=== PATIENT | female | born 1945 | race Caucasian/White ===

== ENCOUNTER 2016-07-27 11:28 | Emergency (ER) | payer MEDICARE ==
[~2016-07-27] VITALS: Ht 157.5 cm; Wt 55.0 kg
[2016-07-27 11:32] VITALS: BP 150/86; PULSE 77; RESP 16; TEMP 98.1; O2SAT 98
[2016-07-27] MEDS ORDERED: LEVO50TA4 PO (11:40)
[2016-07-27] MEDS ORDERED: [UNRECOGNIZED DRUG - CODE] (11:40)
[2016-07-27] MEDS ORDERED: ROBA500T PO (11:49)
--- NOTE | 2016-07-27 11:51 | PD ---
HPI Chief Complaint: Musculoskeletal Complaint Time Seen by Provider: 11:30 Travel History International Travel<30 days: No Contact w/Intl Traveler<30days: No Traveled to known affect area: No History of Present Illness HPI 71 -year-old female presents to the emergency room for evaluation of left posterior shoulder pain for the past 2-3 days. Patient states it started while she was doing Pilates and lifting weights at the gym and has not improved. Pain is severe, 8/10, brought her to tears. She could feel the strain in her shoulder while performing exercises but didn't think anything of it at the time. Now pain is exacerbated with any range of motion of the left shoulder. Relieved with lying down and certain pressure points. She has not taken anything for pain because ibuprofen "tears up my stomach." She has applied heat and ice but states the area seems to make it worse. She has also applied topical creams which helped "for 3 minutes." Denies paresthesias or weakness. History of hypothyroidism. PFSH Past Medical History Thyroid Disease: Yes Influenza Vaccination: No ?: Not Menopausal: Yes Past Surgical History Surgical History: No Previous Surgery Social History Alcohol Use: Yes (occas) Tobacco Use: No Substance Use: No Allergies-Medications (Allergen,Severity, Reaction): Coded Allergies: Erythromycin (Verified Allergy, Intermediate, rash, 07/27/16) Lisinopril (Verified Allergy, Intermediate, rash, 07/27/16) Penicillin (Verified Allergy, Intermediate, rash, 07/27/16) Reported Meds & Prescriptions Reported Meds & Active Scripts Active Robaxin (Methocarbamol) 500 Mg Tab 500 Mg PO Q8HR Reported Progesterone Milled (Progesterone) 1 Pow Pow Levothyroxine (Levothyroxine Sodium) 50 Mcg Tab 50 Mcg PO DAILY Review of Systems Except as stated in HPI: all other systems reviewed are Neg Physical Exam Narrative GENERAL: Well-nourished, well-developed female in no acute distress. Afebrile. Ambulatory. SKIN: Warm and dry. No erythema or ecchymosis. HEAD: Normocephalic. EYES: No scleral icterus. No injection or drainage. NECK: Supple, trachea midline. No JVD or lymphadenopathy. EXTREMITY: Left shoulder tender to palpation over the posterior/scapular region. Limited range of motion in left shoulder secondary to pain. No obvious edema. 2+ radial pulse. Full range of motion of the elbow, wrist, and hand. Strength 5/5 and equal in left hand. Data Data Last Documented VS Vital Signs Date Time Temp Pulse Resp B/P Pulse Ox O2 Delivery O2 Flow Rate FiO2 07/27/16 11:32 98.1 77 16 150/86 98 Orders Orphenadrine Inj (Norflex Inj) (07/27/16 12:00) Ketorolac Inj (Toradol Inj) (07/27/16 12:00) MDM Medical Decision Making Medical Screen Exam Complete: Yes Emergency Medical Condition: Yes Medical Record Reviewed: Yes Differential Diagnosis Muscle spasm versus strain versus rotator cuff injury Narrative Course 71-year-old female presents to the emergency room for evaluation of left shoulder strain for the past 2-3 days. Patient states pain developed while lifting weights and has not improved. She has not taken any oral over-the- counter pain medications.physical exam reveals left shoulder tenderness to palpation over the posterior/scapular region. Limited range of motion in left shoulder secondary to pain. Pain is not as severe with passive range of motion. No edema, ecchymosis, or erythema. 2+ radial pulse. No bony tenderness. No indication for x-ray imaging. Patient is requesting MRI. She was informed that the emergency room does not perform MRIs for nonemergent reasons and to follow-up with her primary care physician for an order. She'll be given Toradol and Norflex in the emergency room and discharged with prescription for Robaxin. Patient told to follow up with a primary care physician or orthopedist and return for worsening symptoms. She understands and agrees to plan. Diagnosis Primary Impression: Muscle strain of left scapular region Qualified Code: S46.912A - Muscle strain of left scapular region, initial encounter Referrals: Primary Care Physician Patient Instructions: General Instructions, Muscle Strain (ED) Additional Instructions: Rest and drink plenty of fluids. Take Robaxin as directed, as needed for pain. Take Tylenol as directed, as needed for pain. Apply heat to the affected area for 20 minutes at a time, as needed for pain and swelling. Follow-up with a primary care physician. Return to the emergency room for worsening symptoms. Med/Other Pt SpecificInfo: Prescription(s) given Scripts Methocarbamol (Robaxin)500 Mg Yce312 Mg PO Q8HR #21 TAB Ref 0 Prov:Soontharothai,Rewadee MD 07/27/16 Disposition: 01 DISCHARGE HOME Condition: Stable Herlinda Maldonado Jul 27, 2016 11:51
[2016-07-27] MEDS ORDERED: KETOROLAC TROMETHAMINE 60 MG/2 ML (IM) VIAL IM ONE (12:00)
[2016-07-27] MEDS ORDERED: ORPHENADRINE INJ 60 MG/2 ML AMP IM ONE (12:00)
== END 2016-07-27 12:09 | disposition home or self-care (01) ==
LOC: PHEFT 11:28
DX: S46.912A Strain of unspecified muscle, fascia and tendon at shoulder and upper arm level, left arm, initial encounter (principal); X50.9XXA Other and unspecified overexertion or strenuous movements or postures, initial encounter; Y93.B4 Activity, pilates; Y93.B3 Activity, free weights; Y92.39 Other specified sports and athletic area as the place of occurrence of the external cause
CPT/HCPCS: 96372; 99283; J1885; J2360

== ENCOUNTER 2017-04-26 11:04 | Emergency (ER) | payer MEDICARE ==
[~2017-04-26] VITALS: Ht 157.5 cm; Wt 56.0 kg
[~2017-04-26 11:04] MED LIST: LEVO50TA4 PO; ROBA500T PO; [UNRECOGNIZED DRUG - CODE]
[2017-04-26 12:04] VITALS: BP 161/94; PULSE 74; RESP 16; TEMP 98.6; O2SAT 96
[2017-04-26 12:23] VITALS: BP 161/80; PULSE 74; RESP 20; O2SAT 97
[2017-04-26] MEDS ORDERED: PROG100C PO (12:23)
[2017-04-26] MEDS ORDERED: IPRA17I INH (12:30)
[2017-04-26] MEDS ORDERED: FLUTI110I INH (12:30)
[2017-04-26 12:40] VITALS: O2SAT 96
[2017-04-26] MEDS ORDERED: ASPIRIN 81 MG CHEW TAB PO ONE (12:45)
[2017-04-26 12:55] LABS: AUTOMATED NEUTROPHIL # 5.4 TH/MM3 (1.8-7.7); BASOPHIL # 0.1 TH/MM3 (0-0.2); BASOPHIL % 0.7 % (0.0-2.0); EOSINOPHIL # 0.1 TH/MM3 (0-0.4); EOSINOPHIL % 0.9 % (0.0-4.0); HEMATOCRIT 49.7 % (35.0-46.0); HEMOGLOBIN 16.5 GM/DL (11.6-15.3); LYMPH % 17.2 % (9.0-44.0); LYMPHOCYTE # 1.2 TH/MM3 (1.0-4.8); MEAN CELL VOLUME 90.4 FL (80.0-100.0); MEAN CORPUSCULAR HEMOGLOBIN 30.1 PG (27.0-34.0); MEAN CORPUSCULAR HGB CONC 33.3 % (32.0-36.0); MEAN PLATELET VOLUME 8.4 FL (7.0-11.0); MONO % 5.8 % (0.0-8.0); MONOCYTE # 0.4 TH/MM3 (0-0.9); NEUT % 75.4 % (16.0-70.0); PLATELET COUNT 221 TH/MM3 (150-450); RED CELL DISTRIBUTION WIDTH 13.2 % (11.6-17.2); WHITE BLOOD COUNT 7.3 TH/MM3 (4.0-11.0)
--- NOTE | 2017-04-26 13:00 | PD ---
HPI Chief Complaint: Cardiac Complaint Time Seen by Provider: 12:20 Travel History International Travel<30 days: No Contact w/Intl Traveler<30days: No Traveled to known affect area: No History of Present Illness HPI The patient is a 72-year-old female who presents to the emergency department for palpitations and possible paroxysmal atrial fibrillation. The patient has a history of atrial fibrillation and underwent ablation by her oracle erp architect who is located at [facility] in [place], [place]. The patient states she had a Holter monitor prior to, to [place], they saw some "runs "of paroxysmal atrial fibrillation. The patient was advised to come to the emergency department for evaluation if she had any further palpitations. The patient states she occasionally has episodes of wheezing and difficulty breathing and [place], and has been using her inhaler over the last several days. The patient then had an episode where she could hear the heartbeat while she was lying in bed, thought she could hear atrial fibrillation. She denies any current lightheadedness, dizziness, chest pain, shortness breath, nausea, vomiting, or lower extremity edema. Symptoms are moderate, there are no current alleviating or exacerbating factors. The patient states she is allergic to rate limiting drugs such as calcium channel blockers and beta blockers. The patient is not currently anticoagulated and does not take aspirin or any other oral anticoagulants. PFSH Past Medical History Asthma: Yes Atrial Fibrillation: Yes (in past) Cardiovascular Problems: Yes (hx A-Fib bicupsid valve prob) Diminished Hearing: No Respiratory: Yes (Asthma) Immunizations Current: Yes Thyroid Disease: Yes Tetanus Vaccination: > 5 Years Influenza Vaccination: No ?: Not Menopausal: Yes Past Surgical History Cardiac Surgery: Yes (ablation) Section: Yes Social History Alcohol Use: Yes (occas) Tobacco Use: No Substance Use: No Allergies-Medications (Allergen,Severity, Reaction): Coded Allergies: erythromycin base (Unverified Allergy, Intermediate, rash, 04/26/17) lisinopril (Unverified Allergy, Intermediate, rash, 04/26/17) penicillin G (Unverified Allergy, Intermediate, rash, 04/26/17) Reported Meds & Prescriptions Reported Meds & Active Scripts Active Reported Flovent Hfa 12 GM Inh (Fluticasone Propionate) 110 Mcg/Act Inh 1 Puff INH BID Atrovent HFA 12.9 GM Inh (Ipratropium [place]) 17 Mcg/Actuation Aer 2 Puff INH Q6HR PRN Progesterone Micronized 100 Mg Cap 100 Mg PO DAILY Levothyroxine (Levothyroxine Sodium) 50 Mcg Tab 100 Mcg PO DAILY Review of Systems Except as stated in HPI: all other systems reviewed are Neg General / Constitutional: No: Fever Cardiovascular: Positive: Palpitations, Irregular Rhythm, No: Chest Pain or Discomfort, Diaphoresis Respiratory: No: Shortness of Breath Gastrointestinal: No: Nausea, Vomiting, Abdominal Pain Musculoskeletal: No: Edema Neurologic: No: Dizziness Physical Exam Narrative GENERAL: Awake, alert, pleasant 72-year-old female who appears her stated age and is in no acute respiratory distress. SKIN: Focused skin assessment warm/dry. HEAD: Atraumatic. Normocephalic. EYES: Pupils equal and round. No scleral icterus. No injection or drainage. ENT: No nasal bleeding or discharge. Mucous membranes pink and moist. NECK: Trachea midline. No JVD. CARDIOVASCULAR: Regular rate and rhythm. Holosystolic murmur 2/6 noted. Heart rate in the 70s. RESPIRATORY: No accessory muscle use. Clear to auscultation. Breath sounds equal bilaterally. GASTROINTESTINAL: Abdomen soft, non-tender, nondistended. MUSCULOSKELETAL: No obvious deformities. No clubbing. No cyanosis. No edema. Calves are soft bilaterally. NEUROLOGICAL: Awake and alert. No obvious cranial nerve deficits. Motor grossly within normal limits. Normal speech. PSYCHIATRIC: Appropriate mood and affect; insight and judgment normal. Data Data Last Documented VS Vital Signs Date Time Temp Pulse Resp B/P (MAP) Pulse Ox O2 Delivery O2 Flow Rate FiO2 04/26/17 12:40 96 Room Air 04/26/17 12:23 74 04/26/17 12:23 20 04/26/17 12:04 98.6 Orders Orders Ckmb (Isoenzyme) Profile (04/26/17 12:38) Complete Blood Count With Diff (04/26/17 12:38) Comprehensive Metabolic Panel (04/26/17 12:38) Magnesium (Mg) (04/26/17 12:38) Prothrombin Time / Inr (Pt) (04/26/17 12:38) Act Partial Throm Time (Ptt) (04/26/17 12:38) Troponin I (04/26/17 12:38) Chest, Single Ap (04/26/17 12:38) Ecg Monitoring (04/26/17 12:38) Iv Access Insert/Monitor (04/26/17 12:38) Oximetry (04/26/17 12:38) Aspirin Chew (Aspirin Chew) (04/26/17 12:45) Labs Laboratory Tests Test 04/26/17 12:45 White Blood Count 7.3 TH/MM3 Red Blood Count 5.50 MIL/MM3 Hemoglobin 16.5 GM/DL Hematocrit 49.7 % Mean Corpuscular Volume 90.4 FL Mean Corpuscular Hemoglobin 30.1 PG Mean Corpuscular Hemoglobin Concent 33.3 % Red Cell Distribution Width 13.2 % Platelet Count 221 TH/MM3 Mean Platelet Volume 8.4 FL Neutrophils (%) (Auto) 75.4 % Lymphocytes (%) (Auto) 17.2 % Monocytes (%) (Auto) 5.8 % Eosinophils (%) (Auto) 0.9 % Basophils (%) (Auto) 0.7 % Neutrophils # (Auto) 5.4 TH/MM3 Lymphocytes # (Auto) 1.2 TH/MM3 Monocytes # (Auto) 0.4 TH/MM3 Eosinophils # (Auto) 0.1 TH/MM3 Basophils # (Auto) 0.1 TH/MM3 CBC Comment AUTO DIFF Differential Comment AUTO DIFF CONFIRMED Prothrombin Time 10.5 SEC Prothromb Time International Ratio 1.0 RATIO Activated Partial Thromboplast Time 29.6 SEC Blood Urea Nitrogen 10 MG/DL Creatinine 0.74 MG/DL Random Glucose 98 MG/DL Total Protein 7.5 GM/DL Albumin 3.9 GM/DL Calcium Level 8.8 MG/DL Magnesium Level 2.2 MG/DL Alkaline Phosphatase 71 U/L Aspartate Amino Transf (AST/SGOT) 18 U/L Alanine Aminotransferase (ALT/SGPT) 19 U/L Total Bilirubin 0.8 MG/DL Sodium Level 139 MEQ/L Potassium Level 4.1 MEQ/L Chloride Level 103 MEQ/L Carbon Dioxide Level 31.3 MEQ/L Anion Gap 5 MEQ/L Estimat Glomerular Filtration Rate 78 ML/MIN Total Creatine Kinase 68 U/L Troponin I LESS THAN 0.02 NG/ML MDM Medical Decision Making Medical Screen Exam Complete: Yes Emergency Medical Condition: Yes Medical Record Reviewed: Yes Interpretation(s) EKG reveals normal sinus rhythm with a rate of 77. Short CT interval of 112 ms. U wave noted. Last Impressions Chest X-Ray 04/26/17 1238 Signed Impressions: Service Date/Time: Wednesday, April 26, 2017 12:47 - CONCLUSION: The lungs are clear. David Barr MD Laboratory Tests Test 04/26/17 12:45 White Blood Count 7.3 TH/MM3 Red Blood Count 5.50 MIL/MM3 Hemoglobin 16.5 GM/DL Hematocrit 49.7 % Mean Corpuscular Volume 90.4 FL Mean Corpuscular Hemoglobin 30.1 PG Mean Corpuscular Hemoglobin Concent 33.3 % Red Cell Distribution Width 13.2 % Platelet Count 221 TH/MM3 Mean Platelet Volume 8.4 FL Neutrophils (%) (Auto) 75.4 % Lymphocytes (%) (Auto) 17.2 % Monocytes (%) (Auto) 5.8 % Eosinophils (%) (Auto) 0.9 % Basophils (%) (Auto) 0.7 % Neutrophils # (Auto) 5.4 TH/MM3 Lymphocytes # (Auto) 1.2 TH/MM3 Monocytes # (Auto) 0.4 TH/MM3 Eosinophils # (Auto) 0.1 TH/MM3 Basophils # (Auto) 0.1 TH/MM3 CBC Comment AUTO DIFF Differential Comment AUTO DIFF CONFIRMED Prothrombin Time 10.5 SEC Prothromb Time International Ratio 1.0 RATIO Activated Partial Thromboplast Time 29.6 SEC Blood Urea Nitrogen 10 MG/DL Creatinine 0.74 MG/DL Random Glucose 98 MG/DL Total Protein 7.5 GM/DL Albumin 3.9 GM/DL Calcium Level 8.8 MG/DL Magnesium Level 2.2 MG/DL Alkaline Phosphatase 71 U/L Aspartate Amino Transf (AST/SGOT) 18 U/L Alanine Aminotransferase (ALT/SGPT) 19 U/L Total Bilirubin 0.8 MG/DL Sodium Level 139 MEQ/L Potassium Level 4.1 MEQ/L Chloride Level 103 MEQ/L Carbon Dioxide Level 31.3 MEQ/L Anion Gap 5 MEQ/L Estimat Glomerular Filtration Rate 78 ML/MIN Total Creatine Kinase 68 U/L Troponin I LESS THAN 0.02 NG/ML Differential Diagnosis Differential diagnoses includes paroxysmal atrial fibrillation, arrhythmia, SVT , sinus arrhythmia, ventricular tachycardia, electrolyte abnormality. Narrative Course IV was established, labs are drawn and sent, and the patient was placed on cardiac telemetry monitoring and continuous pulse oximetry monitoring. EKG was ordered and interpreted. The patient was noted to be normal sinus rhythm, was monitored on telemetry monitoring. Electrolytes were sent to lab. The patient was administered aspirin 81 mg orally. Chest x-rays unremarkable. Electrolyte within normal limits. The patient was monitored on telemetry monitoring, continued be in a normal sinus rhythm. However, it appears she may have bouts of paroxysmal atrial fibrillation. The patient is advised to at least take aspirin daily and consider as a route so when she was taking prior to coming to [place]. I will write for Xarelto, she will call her oracle erp architect and discussed with her aspirin or Xarelto is a better choice for her at this stage, she is comfortable with this plan of care and disposition. Diagnosis Primary Impression: Palpitations Additional Impression: History of atrial fibrillation Patient Instructions: General Instructions Additional Instructions: Medications as discussed in the emergency department visit. Follow-up with your oracle erp architect. Return if symptoms worsen or progress. Please provide the patient a copy of her x-ray results and lab results at discharge. Med/Other Pt SpecificInfo: Prescription(s) given Scripts Rivaroxaban (Xarelto) 20 Mg Tab 20 MG PO DAILY for Blood Clot Prevention for 30 Days, #30 TAB 2 Refills Prov: Greg Magana MD 04/26/17 Disposition: DISCHARGE HOME Condition: Stable Greg Magana MD Apr 26, 2017 13:00
[2017-04-26 13:04] LABS: CHLORIDE 103 MEQ/L (98-107); SODIUM (NA) 139 MEQ/L (136-145)
--- NOTE | 2017-04-26 13:05 | RADRPT ---
EXAM DATE/TIME: 04/26/2017 12:47 [facility] COMPARISON: No previous studies available for comparison. INDICATIONS : Heart palpitations. MEDICAL HISTORY : A-fib. Bicuspid valve problems. Asthma.Thyroid disease. SURGICAL HISTORY : section. Cardiac ablation. Right shoulder. Right knee. ENCOUNTER: Initial ACUITY: 1 day PAIN SCORE: 0/10 LOCATION: chest FINDINGS: A single view of the chest demonstrates the lungs to be symmetrically aerated without evidence of mas s, infiltrate or effusion. No evidence of pneumothorax. The cardiomediastinal contours are unremark able. Osseous structures are intact. [place] screws in the proximal right humerus. CONCLUSION: The lungs are clear. David Barr MD on April 26, 2017 at 13:02 Board Certified Radiologist. This report was verified electronically.
--- NOTE | 2017-04-26 13:05 | RADRPT ---
EXAM DATE/TIME: 04/26/2017 12:47 [facility] COMPARISON: No previous studies available for comparison. INDICATIONS : Heart palpitations. MEDICAL HISTORY : A-fib. Bicuspid valve problems. Asthma.Thyroid disease. SURGICAL HISTORY : section. Cardiac ablation. Right shoulder. Right knee. ENCOUNTER: Initial ACUITY: 1 day PAIN SCORE: 0/10 LOCATION: chest FINDINGS: A single view of the chest demonstrates the lungs to be symmetrically aerated without evidence of mas s, infiltrate or effusion. No evidence of pneumothorax. The cardiomediastinal contours are unremark able. Osseous structures are intact. [place] screws in the proximal right humerus. CONCLUSION: The lungs are clear. David Barr MD on April 26, 2017 at 13:02 Board Certified Radiologist. This report was verified electronically.
[2017-04-26 13:07] LABS: CALCIUM 8.8 MG/DL (8.5-10.1)
[2017-04-26 13:08] LABS: ALBUMIN 3.9 GM/DL (3.4-5.0); BICARBONATE 31.3 MEQ/L (21.0-32.0); BLOOD UREA NITROGEN 10 MG/DL (7-18); GLUCOSE,RANDOM 98 MG/DL (74-106); MAGNESIUM 2.2 MG/DL (1.5-2.5)
[2017-04-26 13:10] LABS: PROTHROMBIN TIME - PATIENT 10.5 SEC (9.8-11.6)
[2017-04-26 13:11] LABS: ALT (GPT) 19 U/L (10-53); AST (GOT) 18 U/L (15-37); CREATININE 0.74 MG/DL (0.50-1.00); GLOMERULAR FILTRATION RATE 78 ML/MIN (>89)
[2017-04-26 13:12] LABS: TOTAL BILIRUBIN ADULT 0.8 MG/DL (0.2-1.0); TOTAL PROTEIN 7.5 GM/DL (6.4-8.2)
[2017-04-26 13:14] LABS: ALKALINE PHOSPHATASE 71 U/L (45-117)
[2017-04-26 13:16] LABS: TROPONIN I LESS THAN 0.02 NG/ML (0.02-0.05)
[2017-04-26] MEDS ORDERED: XARE20TA PO (13:39)
[2017-04-26 13:55] VITALS: BP 154/80
--- NOTE | 2017-04-26 22:09 | EKG ---
Date Performed: 04/26/2017 Time Performed: 12:16:21 PTAGE: 72 years EKG: Sinus rhythm WITH SHORT CT INTERVAL BORDERLINE ECG NO PREVIOUS TRACING DOCTOR: Jamal Zapata Interpretating Date/Time 04/26/2017 22:08:41
--- NOTE | 2017-04-26 22:09 | EKG ---
Date Performed: 04/26/2017 Time Performed: 12:16:21 PTAGE: 72 years EKG: Sinus rhythm WITH SHORT ME INTERVAL BORDERLINE ECG NO PREVIOUS TRACING DOCTOR: Jamal Zapata Interpretating Date/Time 04/26/2017 22:08:41
--- NOTE | 2017-04-26 22:09 | EKG ---
Date Performed: 04/26/2017 Time Performed: 12:16:21 PTAGE: 72 years EKG: Sinus rhythm WITH SHORT OR INTERVAL BORDERLINE ECG NO PREVIOUS TRACING DOCTOR: Jamal Zapata Interpretating Date/Time 04/26/2017 22:08:41
== END 2017-04-26 13:57 | disposition home or self-care (01) ==
LOC: PHED 11:04
DX: I48.0 Paroxysmal atrial fibrillation (principal)
CPT/HCPCS: 71010; 80053; 82550; 83735; 84484; 85025; 85610; 85730; 93005; 99284

== ENCOUNTER 2017-07-22 09:23 | Emergency (ER) | payer MEDICARE ==
[~2017-07-22] VITALS: Ht 157.5 cm; Wt 57.0 kg
[~2017-07-22 09:23] MED LIST changes: +FLUTI110I INH; +IPRA17I INH; +PROG100C PO; -ROBA500T PO; +XARE20TA PO; -[UNRECOGNIZED DRUG - CODE]
[2017-07-22 09:25] VITALS: BP 184/77; PULSE 71; RESP 16; TEMP 98; O2SAT 94
[2017-07-22] MEDS ORDERED: OMEP40CA2 PO (10:39)
[2017-07-22] MEDS ORDERED: SPIRCAP INH (10:39)
--- NOTE | 2017-07-22 11:00 | PD ---
HPI Chief Complaint: Skin Problem Time Seen by Provider: 10:54 Travel History International Travel<30 days: No Contact w/Intl Traveler<30days: No Traveled to known affect area: No History of Present Illness HPI 72-year-old female presents for evaluation. She reports over the past 2 days she developed a skin infection in her groin. She reports that it started out like a small pimple lesion which has gradually worsened and this is what prompted evaluation. Associated pain, throbbing, worse with palpation. Denies any drainage, fevers or chills. No other complaints. PFSH Past Medical History Asthma: Yes Atrial Fibrillation: Yes (in past) Cardiovascular Problems: Yes (hx A-Fib bicupsid valve prob) Diminished Hearing: No Respiratory: Yes (Asthma) Immunizations Current: Yes Thyroid Disease: Yes Tetanus Vaccination: > 5 Years Influenza Vaccination: No ?: Not Menopausal: Yes Past Surgical History Cardiac Surgery: Yes (ablation) Section: Yes Social History Alcohol Use: Yes (occas) Tobacco Use: No Substance Use: No Allergies-Medications (Allergen,Severity, Reaction): Coded Allergies: erythromycin base (Unverified Allergy, Intermediate, rash, 07/22/17) lisinopril (Unverified Allergy, Intermediate, rash, 07/22/17) penicillin G (Unverified Allergy, Intermediate, rash, 07/22/17) Reported Meds & Prescriptions Reported Meds & Active Scripts Active Clindamycin (Clindamycin HCl) 300 Mg Cap 300 Mg PO TID Reported Spiriva Handihaler (Tiotropium Inh) 18 Mcg Cap 18 Mcg INH DAILY 1 capsule = 18 mcg Omeprazole 40 Mg Cap 40 Mg PO DAILY Flovent Hfa 12 GM Inh (Fluticasone Propionate) 110 Mcg/Act Inh 1 Puff INH BID Atrovent HFA 12.9 GM Inh (Ipratropium [place]) 17 Mcg/Actuation Aer 2 Puff INH Q6HR PRN Levothyroxine (Levothyroxine Sodium) 50 Mcg Tab 100 Mcg PO DAILY Review of Systems General / Constitutional: No: Fever, Chills Gastrointestinal: No: Nausea, Vomiting, Abdominal Pain Skin: Positive Other (positive for skin swelling, tenderness, pain. Denies drainage.) Physical Exam Narrative Examined in the presence of a female nurse GENERAL: Well-nourished female in no acute distress SKIN: Warm and dry. Examination of the groin reveals a less than 1 cm area of induration, tender palpation, in the perineum. CARDIOVASCULAR: Regular rate and rhythm. No murmur appreciated. RESPIRATORY: No accessory muscle use. Clear to auscultation. Breath sounds equal bilaterally. GASTROINTESTINAL: Abdomen soft, non-tender, nondistended. Hepatic and splenic margins not palpable. Data Data Last Documented VS Vital Signs Date Time Temp Pulse Resp B/P (MAP) Pulse Ox O2 Delivery O2 Flow Rate FiO2 07/22/17 09:25 98.0 71 16 184/77 (112) 94 Orders Orders Ed Discharge Order (07/22/17 11:26) Wound Culture And Gram Stain (07/22/17 11:28) [facility] Medical Decision Making Medical Screen Exam Complete: Yes Emergency Medical Condition: Yes Medical Record Reviewed: Yes Differential Diagnosis Cellulitis, folliculitis, abscess, carbuncle, feruncle Narrative Course The patient has a small area of cellulitic changes in the perineum with induration, erythema. I did perform needle aspiration with 18-gauge needle with no purulent drainage. A wound culture was sent and the patient is being discharged on clindamycin. Diagnosis Primary Impression: Cellulitis Additional Instructions: Medications prescribed, warm compresses several times a day. Return for any acutely new or worsening symptoms. Med/Other Pt SpecificInfo: Prescription(s) given, Wound Care Scripts Clindamycin (Clindamycin) 300 Mg Cap 300 MG PO TID for Infection, #21 CAP 0 Refills Prov: Rick Cuello MD 07/22/17 Disposition: 01 DISCHARGE HOME Condition: Stable Daryl Tracey Jul 22, 2017 11:00
[2017-07-22] MEDS ORDERED: CLIN300C5 PO (11:26)
== END 2017-07-22 11:36 | disposition home or self-care (01) ==
LOC: PHED 09:23
DX: L03.314 Cellulitis of groin (principal); J45.909 Unspecified asthma, uncomplicated; I48.91 Unspecified atrial fibrillation
CPT/HCPCS: 10160; 86403; 87070; 87205